=== PATIENT | female | born 1995 | race Two or more races ===

== ENCOUNTER 2019-03-31 08:33 | Emergency (ER) | payer MEDICAID, OTHER ==
[~2019-03-31] VITALS: Ht 170.2 cm; Wt 101.2 kg
[2019-03-31 11:07] VITALS: BP 127/63
== END 2019-03-31 12:52 | disposition home or self-care (01) ==
LOC: ED 09:50
DX: R10.30 Lower abdominal pain, unspecified (principal); R10.2 Pelvic and perineal pain; M54.5 Low back pain
CPT/HCPCS: 36415; 74177; 76830; 80048; 81001; 81025; 82040; 84703; 85025; 96374; 96375; 99284; J2270; J2405; Q9967